=== PATIENT | female | born 1935 | race Caucasian/White ===

== ENCOUNTER 2016-10-09 16:07 | Inpatient (IN) | payer MEDICARE, OTHER ==
[~2016-10-09] VITALS: Ht 154.9 cm; Wt 37.4 kg
--- NOTE | ~2016-10-09 | HP ---
Unit #: [id number] #: [id number] Patient: LINO YING [id number] [address] [place], [place] [address] [id number] MR#: [id number] NAME: LINO YING. ROOM: 326 Age: 81 Sex: F Admission Date: 10/09/2016 : 1935 Attending Physician: Garett Guerrero M.D. Primary Care Physician: Cliff Trinidad M.D. HISTORY AND PHYSICAL CHIEF COMPLAINT Abnormal labs. HISTORY OF PRESENT ILLNESS Patient is an 81-year-old female with a history of bleeding per rectum who presented to the PCP office complaining of bleeding per rectum and feeling sluggish. Patient had blood work done at Dr. Trinidad's office, and the hemoglobin was down to 7.6. Patient was discharged home on March 12 with a similar presentation. However, at that time, the patient refused colonoscopy. Patient has a prior history of diverticulosis, grade III internal hemorrhoids, and prior history of ascending colon AVM, status post argon plasma coagulation in 2014. Patient stated that patient has been having bleeding per rectum since yesterday. Patient is refusing colonoscopy because she does not like the bowel prep. Denies any chest pain and denies any dizziness. PAST MEDICAL HISTORY 1. Recurrent bleeding per rectum. 2. Chronic systolic heart failure with EF of 15%. 3. Coronary artery disease with prior stent placement. 4. Grade III internal hemorrhoids, status post banding. 5. Ascending colon AVM, status post argon plasma coagulation. 6. Diverticulosis. 7. Atrial fibrillation. 8. Mild dementia. 9. Gastroesophageal reflux disease. 10. Esophagitis. 11. Gastritis. 12. Asthma. 13. Prior history of C. difficile colitis. 14. Osteoporosis. 15. Nephrolithiasis. 16. Hyperlipidemia. PAST SURGICAL HISTORY 1. Bilateral cataracts. 2. Bilateral hip. 3. Cholecystectomy. 4. Hysterectomy. 5. Right elbow open reduction and internal fixation. 6. Multiple epidural placements. 7. Vagotomy. ALLERGIES Unit #: [id number] #: [id number] Patient: LINO YING Codeine, aspirin, and sulfa. HOME MEDICATIONS Coreg and amiodarone. FAMILY HISTORY Hypertension and asthma. SOCIAL HISTORY She resides at home with her sister who is currently present at bedside. No alcohol, no tobacco, and no illicit drug abuse. REVIEW OF SYSTEMS Positive for bleeding per rectum and feeling sluggish. Denies any chest pain, denies any dizziness, and denies any fall. All other systems have been reviewed and are none except as mentioned in the HPI. PHYSICAL EXAMINATION GENERAL: Patient is lying in bed not in acute distress. VITAL SIGNS: Temperature 97.8, pulse 102, respiratory rate 18, blood pressure 153/73, and saturating 100% on room air. HEENT: Head atraumatic, normocephalic. Pupils equal, round, and reactive to light and accommodation. Extraocular movements are intact. Dry mucous membranes. Positive for pallor. NECK: Supple. LUNGS: Decreased air entry at the bases. HEART: Regular rate and rhythm. ABDOMEN: Soft. Positive bowel sounds. EXTREMITIES: No cyanosis, no clubbing. NEUROLOGIC: Alert, awake, and oriented. No gross focal motor deficit. PSYCHIATRIC: Normal mood and affect. DIAGNOSTIC STUDIES LABORATORY: Sodium 141, potassium 4.4, chloride 108, bicarb 25, glucose 123, BUN 15, creatinine 1.3, calcium 8.7, AST 19, ALT 10, alkaline phosphatase 83, total protein 7.4, and albumin 3.4. INR is 1. WBC 3.8, hemoglobin 7.1, hematocrit 21.5, and platelets 328,000 with neutrophils 60% and bands 4%. ASSESSMENT 1. Rectal bleeding. 2. Anemia. 3. Atrial fibrillation. PLAN Admit the patient to inpatient with telemetry. Transfuse two units of packed red blood cells. Will have a GI consult with Dr. Barrientos. Will continue with Protonix 40 mg IV b.i.d. Repeat the blood work again in the morning, and further recommendations will follow. Dictated by Jessi Azar TD: 10/09/2016 21:51 JOB #: [id number] Unit #: [id number] #: [id number] Patient: LINO YING HISTORY AND PHYSICAL Page 1 of 1 X GARETT GUERRERO MD HISTORY AND PHYSICAL
--- NOTE | ~2016-10-09 | CO ---
Unit #: [id number] #: [id number] Patient: LINO YING [id number] [facility]. [place], [place] [address] [id number] I MR#: [id number] NAME: LINO YING. ROOM: [facility] Age: 81 Sex: F Admission Date: 10/09/2016 : 1935 Attending Physician: Charu Rodriguez M.D. Primary Care Physician: Cliff Trinidad M.D. Requesting Physician: Ronny Guerrero M.D. Consultation Date: 10/10/2016 CONSULTATION REPORT REASON FOR CONSULTATION GI bleeding. HISTORY OF PRESENTING ILLNESS Ms. Ying is an 81-year-old female. She presented to her PCPS today with blood in the stool as was found to be anemic with hemoglobin of 7.1. She was transferred here for transfusion and evaluation. The patient has had bright red blood with the stools several times over the last few weeks. She has had similar problems in the past. Also, of note, she had a colonoscopy done in 2014 where multiple AVMs were seen in the cecum and cauterized and also had large internal hemorrhoids. They were banded at that time. PAST MEDICAL HISTORY Recurrent blood in the rectum, coronary artery disease, diverticulosis, atrial fibrillation, gastroesophageal reflux disease and also a history of hypertension and hyperlipidemia. SOCIAL HISTORY Nonsmoker. Nonalcoholic. FAMILY HISTORY No history of colon cancer. ALLERGIES Codeine, aspirin and sulfa. MEDICATIONS AT HOME Reviewed. REVIEW OF SYSTEMS Complete 10-point review of systems was done which is unremarkable other than as mentioned above. PHYSICAL EXAMINATION VITAL SIGNS: Stable. Temperature 98. Pulse 102. Respiration 18. Blood pressure 152/73. HEENT: Pupils equal and reactive. Sclerae anicteric. Oral mucosa moist. NECK: No JVD. No lymphadenopathy. CHEST: Clear to auscultation bilaterally. CARDIOVASCULAR: Regular rate and rhythm. No murmurs. ABDOMEN: Soft, nontender, nondistended. EXTREMITIES: Without clubbing, cyanosis or edema. NEUROLOGIC: Intact. Unit #: [id number] #: [id number] Patient: LINO YING SKIN: Warm and dry. DIAGNOSTIC STUDIES LABORATORY: Hemoglobin on arrival 7.1. INR was one. Other labs were unremarkable. ASSESSMENT AND PLAN Recurrent blood in the stool, possible recurrent AVMs. Colorectal cancer cannot be ruled out. I strongly recommended colonoscopy to her. She has been advised to have a colonoscopy before also and has declined it. She does not want a colonoscopy and understands that we may missing possibly cancer or other lesions and that she have continuous or further worsening of the bleeding possibly detrimental. We will continue to give supportive care. Transfuse as necessary. Thank you, Dr. Guerrero, for this interesting consult. We will follow along. Dictated by... Miguel Barrientos M.D. REJI/pablo TD: 10/10/2016 14:23 JOB #: [id number] CONSULTATION REPORT Page 1 of 1 X Miguel Barrientos MD X CONSULTATION REPORT
--- NOTE | ~2016-10-09 | OR ---
Unit #: [id number] #: [id number] Patient: LINO YING [id number] [address] [place], [place] [address] [id number] Cari MR#: [id number] NAME: LINO YING. ROOM: [facility] Date of Procedure: 10/12/2016 Admission Date: 10/09/2016 Surgeon: Miguel Barrientos M.D. : 1935 Attending Physician: Charu Rodriguez M.D. Primary Care Physician: Cliff Trinidad M.D. OPERATIVE REPORT PROCEDURE PERFORMED Colonoscopy to cecum. INDICATIONS FOR PROCEDURE Recurrent blood in the stool, anemia of acute on chronic blood loss. MEDICATIONS Monitored anesthesia. POSTOPERATIVE FINDINGS Colonoscopy completed to cecum. Diverticulosis noted. Internal hemorrhoids noted. Prep was good. PLAN Followup with hemoglobin. Watch for any further bleeding. DESCRIPTION OF PROCEDURE The patient was explained of the procedure, risks, and benefits along with the risks and benefits of anesthesia. She was brought to the endoscopy room. Propofol anesthesia was given. Rectal exam was done, which was normal. Colonoscope was lubricated, passed up the rectum, advanced under direct vision all the way to the cecum. Cecum was identified by ileocecal valve and appendiceal orifice. I then started to pull the scope out carefully looking. Diverticulosis noted. I retroflexed in the rectum, internal hemorrhoids were seen. Gently, the scope was pulled out. She tolerated it well. No major complications were seen. Dictated by... Jessi Boogie/tegan TD: 10/12/2016 15:53 JOB #: [id number] Unit #: [id number] #: [id number] Patient: LINO YING OPERATIVE REPORT Page 1 of 1 X Miguel Barrientos MD X PROCEDURE OPERATIVE NOTE
--- NOTE | ~2016-10-09 | DS ---
Unit #: [id number] #: [id number] Patient: LINO YING [id number] [facility]. [place], [place] [address] [id number] I MR#: [id number] NAME: LINO YING. ROOM: [facility] Age: 81 Sex: F Admission Date: 10/09/2016 : 1935 Discharge Date: 10/13/2016 Attending Physician: Charu Rodriguez M.D. Primary Care Physician: Cliff Trinidad M.D. DISCHARGE SUMMARY REASON FOR ADMISSION Abnormal laboratory studies. HISTORY OF PRESENT ILLNESS/HOSPITAL COURSE The patient apparently went to her primary care physician. It was noted that her hemoglobin was 7.6. Therefore, she was asked to go to the emergency room. The patient was subsequently evaluated and seen. Her initial CBC shows a hemoglobin of 7.1. She was typed and crossed and transfused two units. We placed consultation to Dr. Barrientos of gastroenterology services, who recommended colonoscopy secondary to her prior history of recurrent bleeding, as well as AVM formation in the past that required coagulation and/or cautery. The patient initially refused. Therefore, we kept her in the hospital for one day to observe hemoglobin. The subsequent day she began developing acute episodes of bright red blood per rectum. She subsequently agreed for colonoscopy. Ultimately she underwent colonoscopy which did not show any acute source, but it did show internal hemorrhoids as well as diverticulosis. Her hemoglobin currently is at 9.9, which likely represents her baseline, between 9 to 10. She has had no further episodes since she has been here. She has been able to tolerate diet well without difficulty. She is currently clinically stable for discharge home. At the time of discharge it is recommended that she follow up with her primary care physician in approximately 7-10 days for repeat CBC, where here hemoglobin likely baseline should be between 9-10. FINAL DISCHARGE DIAGNOSES 1. Bright red blood per rectum. 2. Acute blood loss anemia, status post transfusion. 3. Chronic systolic heart failure, ejection fraction 15%. 4. Coronary artery disease, status post stent placement in the past. 5. Internal hemorrhoids, status post banding in the past. 6. Prior history of ascending colon AVM, status post coagulation in the past. 7. Diverticulosis. 8. Atrial fibrillation. 9. Mild dementia. 10. Failure to thrive. 11. Moderate to severe protein/caloric malnutrition. 12. Gastroesophageal reflux disease. Unit #: [id number] #: [id number] Patient: LINO YING 13. Esophagitis. 14. Gastritis. 15. Asthma. 16. Osteoporosis. 17. Prior history of nephrolithiasis. 18. Hyperlipidemia. FINAL DISCHARGE MEDICATIONS 1. Amiodarone 200 mg p.o. daily. 2. Carvedilol 3.125 mg p.o. b.i.d. 3. Protonix 40 mg p.o. daily. DISCHARGE CONDITION Stable. DISCHARGE DISPOSITION Home. FOLLOWUP Follow up with primary care physician as detailed above. Dictated by... Jessi Guevara/angelina TD: 10/15/2016 08:23 JOB #: [id number] DISCHARGE SUMMARY Page 1 of 1 X Charu Rodriguez MD X DISCHARGE SUMMARY
--- NOTE | ~2016-10-09 | A ---
[facility] Nutrition Therapy DATE: 10/10/16 Patient: LINO YING Physician: [email or web address] Address: [address] [place] [address] Room/Bed: [address] [place] [address], Zip: [place] [address] Admit Date: 10/09/16 Date of : [birth year] Height: 5 1 Weight: 84 38.1 NUTRITIONAL ASSESSMENT: REASON: Low BMI Admitting dx: 81 y/o female admitted with Hgb of 7.6, rectal bleeding PMH: GIB, diverticulosis, HLD, CHF, CAD s/p stent, GERD, internal hemorrhoids, esophagitis, gastritis, c. diff colitis Anthropometrics: Ht: 61", wt: 83 lbs (family confirmed), BMI: 15 (underweight), 79% IBW Labs: GFR 46.7, other labs WNL Meds: Citrate of Mg, PPI I/O & Bowel function: BM 10/09 (diarrhea, bleeding) Skin Integrity: Redness coccyx (other documented issues not significant), no edema Estimated Nutrition Needs: Increased needs due to underweight status Assessment: Chart reviewed, events noted. See admitting dx and PMH as stated above. RD assessing due to underweight status. We have previously assessed this patient due to the same, most recently on 10/10/15; note reviewed. Patient states she eats whatever she wants at home. UBW used to be 120 lbs a few years ago, but her weight has stabilized ranging between 77-92 lbs. Family member in room (daughter?) confirms current weight and denies weight loss, stating the patient has actually gained weight. She is tolerating a clear liquid diet but refuses oral supplements. She is also currently refusing a colonscopy. See RD recs below, will follow hospital course. Dx: Underweight r/t recurrent illnesses AEB BMI 15, 79% IBW. Intervention: Oral diet as tolerated Monitoring, Evaluation and Goals: 1. Tolerance of oral diet avancement with PO intake > 50% of meals. 2. Gradual weight gain towards a healthy BMI range. 3. Normalize GI function. Monitor: per protocol, criteria to determine if above goals met Recommendations: [facility] Nutrition Therapy DATE: 10/10/16 Patient: LINO YING Physician: GRISELDA Address: [address] [place] [address] Room/Bed: [address] [place] [address], Zip: [place] [address] Admit Date: 10/09/16 Date of : [birth year] Height: 5 1 Weight: 84 38.1 1. Advance oral diet as tolerated to Regular. If GIB is confirmed she may benefit from a GI soft diet until resolved. She has currently refused oral nutrition supplements. 2. Please weigh q 3 days for monitoring purposes, as the patient is clinically underweight. RD will follow Mild-moderate nutrition risk Respectfully, Nan Bledsoe RD, LD [facility] cc: client file
[~2016-10-09 16:07] MED LIST: ACETAMINOPHEN PO; ACETAMINOPHEN PR; ACETAMINOPHEN325 MG PO; ACETAMINOPHEN500 M2; ACETAMINOPHEN650 M4 PO; AGGRENOX PO; ALDACTONE25 MG PO; AMBIEN CR12.5 MG/BL PO; AMIODARONE HCL400 MG PO; ANUSOL SUPP1 SUPP RC; ARICEPT5 M2 PO; ARTIFICIAL TEAR15 M5 OP; ASPIRIN EC81 M1 PO; ASPIRINEC PO; AUGMENTIN PO; AUGMENTIN875 MG PO; B-121000 MC1 PO; BONIVA150 MG PO; CARDIZEM CD PO; CARVEDILOL3.125 MG PO; CELEBREX PO; CERTAGEN PO; CIPRO PO; CITRACAL PO; CITRACAL200 MG; CLOPIDOGREL BIS75 MG PO; COMBIVENT INH14.7 GM INH; COREG12.5 MG PO; COREG3.125 M1 PO; DARVOCET-N 1001 TAB; DARVOCET-N 1001 TAB PO; ELIQUIS2.5 MG PO; FLAGYL250 M1 PO; FLOVENT HFA10.6 GM IN; FLOVENT HFA12 GM INH; HYDROCORTISONE30 G1 EXT; KEFLEX250 M1 PO; KEFLEX500 MG PO; KROGER PHARMACY; LASIX20 MG PO; LEVAQUIN PO; LISINOPRIL2.5 MG PO; LORTAB 5-325 M1 EACH PO; LORTAB 5/500 TA1 TA2 PO; LOVENOX40 MG/0.4 SQ; MACROBID100 MG PO; MAG-OX 400400 M1 PO; MAG-OXIDE400 MG PO; MAGOX 400400 MG PO; METRONIDAZOLE PO; MICRO-K10 MEQ PO; MIRALAX17 GM PO; MULTI-VITAMIN W1 TA1 PO; MULTI-VITAMIN1 EAC1 PO; MULTI-VITAMIN1 TAB; MULTICHEW1 TAB.CHEW PO; MULTIPLE VITAMI1 T11 PO; NEXIUM20 MG PO; OMEPRAZOLE40 MG PO; ONDANSETRON4 MG/TAB PO; PANTOPRAZOLE SO40 MG PO; PERCOCET 10/3251 TAB PO; PERCOCET 5-3251 TAB; PERCOCET PO; PERCOCET5/325 PO; PHENERGAN PO; PHENERGAN12.5 MG PO; PLAVIX PO; PRAVACHOL PO; PREDNISONE; PREDNISONE PO; PREDNISONE10 MG PO; PROTONIX PO; PYRIDIUM PO; QVAR7.3 G1 HHN; ROBAXIN 750750 MG PO; ROCEPHIN2 G/VIAL IJ; ROCEPHIN2 G/VIAL IV; TRAMADOL HCL50 M1 PO; VANCOMYCIN IV; VICODIN 5/1 TAB 5/50 PO; VICODIN 5/500 T1 TAB PO; XOPENEX1.25 MG/3; [UNRECOGNIZED DRUG - OTHER] PO
[2016-10-09 18:16] LABS: BASOPHIL# 0.1 X10e3 (0-0.3); BASOPHIL% 2.4 % (0-2.5); EOSINOPHIL# 0.2 X10e3 (0-0.7); HEMATOCRIT 21.5 % (35.0-45.0); HEMOGLOBIN 7.1 gm/dL (12.0-16.0); LYMPHOCYTE# 0.9 X10e3 (1.0-3.5); LYMPHOCYTE% 24.5 % (17.0-45.0); MEAN CELL VOLUME 89.2 FL (83-96); MEAN CORPUSCULAR HEMOGLOBIN 29.5 PG (28-34); MEAN CORPUSCULAR HGB CONC 33.1 g/dL (30-36); MONOCYTE# 0.3 X10e3 (0-1.0); NEUTROPHIL# 2.3 X10e3 (1.5-7.1); NEUTROPHIL% 62.1 % (40-75); PLATELET COUNT 328 X10e3 (140-420); RED BLOOD COUNT 2.41 X10e (3.90-5.30); RED CELL DISTRIBUTION WIDTH 16.5 % (11.0-15.5); WHITE BLOOD COUNT 3.8 X10e3 (4.0-10.5)
[2016-10-09 18:18] LABS: DIFF IND YES
[2016-10-09 18:24] LABS: PARTIAL THROMBOPLASTIN TIME 24.5 SECONDS (23.5-31.3); PROTHROMBIN TIME (PATIENT) 10.8 SECONDS (10.0-11.7)
[2016-10-09 18:30] LABS: ALBUMIN SERUM 3.4 g/dL (3.5-5.0); BILIRUBIN, DIRECT 0.1 mg/dL (0.0-0.2); BILIRUBIN,INDIRECT 0.2 mg/dL (0.0-0.9); BILIRUBIN,TOTAL 0.3 mg/dL (0.2-2.0); BUN/CREATININE RATIO 11.53; CALCIUM SERUM 8.7 mg/dL (8.4-10.2); CREATININE SERUM 1.3 mg/dL (0.6-1.4); GLOM FILT RATE Estimated 38.2 mL/min (>60); POTASSIUM 4.4 mmol/L (3.5-5.1); PROTEIN TOTAL SERUM 7.4 g/dL (6.0-8.3)
[2016-10-09 19:01] LABS: ANISOCYTOSIS MOD; PLATELET ESTIMATE NORMAL (NORMAL); POIKILOCYTOSIS SL
[2016-10-09] MEDS ORDERED: AMIODARONE HCL200 MG PO (22:01)
[2016-10-09] MEDS ORDERED: CARVEDILOL3.125 MG PO (22:02)
[2016-10-09] MEDS ORDERED: PROTONIX PO (22:02)
[2016-10-10 07:35] LABS: HEMATOCRIT 31.8 % (35.0-45.0); MEAN CELL VOLUME 88.1 FL (83-96); MEAN CORPUSCULAR HEMOGLOBIN 29.9 PG (28-34); MEAN PLATELET VOLUME 8.1 FL (6.5-11.5); RED BLOOD COUNT 3.61 X10e (3.90-5.30); RED CELL DISTRIBUTION WIDTH 15.7 % (11.0-15.5); WHITE BLOOD COUNT 4.9 X10e3 (4.0-10.5)
[2016-10-10 07:37] LABS: HEMOGLOBIN 10.8 gm/dL (12.0-16.0)
[2016-10-10 08:27] LABS: BUN/CREATININE RATIO 14.54; CALCIUM SERUM 8.3 mg/dL (8.4-10.2); CREATININE SERUM 1.1 mg/dL (0.6-1.4); GLOM FILT RATE Estimated 46.7 mL/min (>60); POTASSIUM 4.7 mmol/L (3.5-5.1)
[2016-10-11 05:13] LABS: HEMATOCRIT 32.7 % (35.0-45.0); HEMOGLOBIN 11.1 gm/dL (12.0-16.0); MEAN CELL VOLUME 88.1 FL (83-96); MEAN CORPUSCULAR HEMOGLOBIN 29.8 PG (28-34); MEAN CORPUSCULAR HGB CONC 33.8 g/dL (30-36); MEAN PLATELET VOLUME 8.1 FL (6.5-11.5); RED BLOOD COUNT 3.71 X10e (3.90-5.30); RED CELL DISTRIBUTION WIDTH 15.9 % (11.0-15.5); WHITE BLOOD COUNT 4.8 X10e3 (4.0-10.5)
[2016-10-11 05:44] LABS: BUN/CREATININE RATIO 11.81; CALCIUM SERUM 8.3 mg/dL (8.4-10.2); CREATININE SERUM 1.1 mg/dL (0.6-1.4); GLOM FILT RATE Estimated 46.7 mL/min (>60); POTASSIUM 3.9 mmol/L (3.5-5.1)
[2016-10-12 06:13] LABS: HEMATOCRIT 34.4 % (35.0-45.0); HEMOGLOBIN 11.6 gm/dL (12.0-16.0); MEAN CELL VOLUME 88.5 FL (83-96); MEAN CORPUSCULAR HEMOGLOBIN 29.8 PG (28-34); MEAN CORPUSCULAR HGB CONC 33.6 g/dL (30-36); RED BLOOD COUNT 3.88 X10e (3.90-5.30); RED CELL DISTRIBUTION WIDTH 16.2 % (11.0-15.5); WHITE BLOOD COUNT 4.8 X10e3 (4.0-10.5)
[2016-10-12 06:26] LABS: CALCIUM SERUM 8.7 mg/dL (8.4-10.2); CREATININE SERUM 1.4 mg/dL (0.6-1.4); GLOM FILT RATE Estimated 34.9 mL/min (>60)
[2016-10-13 05:11] LABS: HEMATOCRIT 29.5 % (35.0-45.0); HEMOGLOBIN 9.9 gm/dL (12.0-16.0); MEAN CELL VOLUME 90.2 FL (83-96); MEAN CORPUSCULAR HEMOGLOBIN 30.3 PG (28-34); MEAN CORPUSCULAR HGB CONC 33.6 g/dL (30-36); MEAN PLATELET VOLUME 7.9 FL (6.5-11.5); RED BLOOD COUNT 3.27 X10e (3.90-5.30); RED CELL DISTRIBUTION WIDTH 15.9 % (11.0-15.5); WHITE BLOOD COUNT 3.2 X10e3 (4.0-10.5)
[2016-10-13 06:00] LABS: BUN/CREATININE RATIO 11.42; CALCIUM SERUM 7.9 mg/dL (8.4-10.2); CREATININE SERUM 1.4 mg/dL (0.6-1.4); GLOM FILT RATE Estimated 34.9 mL/min (>60); POTASSIUM 3.4 mmol/L (3.5-5.1)
== END 2016-10-13 13:42 | disposition home health service (06) | DRG 377 ==
LOC: CED 16:07 → CEDOF 19:23 → C3A PCU 20:20 → CED 20:20 → CEDOF 21:00 → C3A PCU 21:00
PROVIDERS: Emergency Medicine; Family Medicine; Internal Medicine
PROC: 30233N1 Transfusion of Nonautologous Red Blood Cells into Peripheral Vein, Percutaneous Approach (ICD-10-PCS; principal; 2016-10-09)
PROC: 05HA33Z Insertion of Infusion Device into Left Brachial Vein, Percutaneous Approach (ICD-10-PCS; 2016-10-09)
PROC: 0DJD8ZZ Inspection of Lower Intestinal Tract, Via Natural or Artificial Opening Endoscopic (ICD-10-PCS; 2016-10-12)
DX: K92.1 Melena (principal); E43 Unspecified severe protein-calorie malnutrition; I50.22 Chronic systolic (congestive) heart failure; F03.90 Unspecified dementia, unspecified severity, without behavioral disturbance, psychotic disturbance, mood disturbance, and anxiety; I48.91 Unspecified atrial fibrillation; D62 Acute posthemorrhagic anemia; Z68.1 Body mass index [BMI] 19.9 or less, adult; R63.6 Underweight; K21.9 Gastro-esophageal reflux disease without esophagitis; J45.909 Unspecified asthma, uncomplicated; E78.5 Hyperlipidemia, unspecified; M81.0 Age-related osteoporosis without current pathological fracture; K64.8 Other hemorrhoids; K57.90 Diverticulosis of intestine, part unspecified, without perforation or abscess without bleeding; I25.10 Atherosclerotic heart disease of native coronary artery without angina pectoris; Z95.5 Presence of coronary angioplasty implant and graft; Z90.49 Acquired absence of other specified parts of digestive tract; Z90.710 Acquired absence of both cervix and uterus; Z88.2 Allergy status to sulfonamides; Z88.8 Allergy status to other drugs, medicaments and biological substances; Z96.643 Presence of artificial hip joint, bilateral; Z87.442 Personal history of urinary calculi; Z82.49 Family history of ischemic heart disease and other diseases of the circulatory system; Z82.5 Family history of asthma and other chronic lower respiratory diseases; R62.7 Adult failure to thrive
CPT/HCPCS: 36415; 80048; 80076; 85025; 85027; 85610; 85730; 86850; 86900; 86901; 86923; 99284; C9113; J2405; P9016